=== PATIENT | male | born 1995 | race Caucasian/White ===

== ENCOUNTER 2016-09-11 18:03 | Emergency (ER) | payer BC ==
[2016-09-11] MEDS ORDERED: CEPHALEXIN 250 MG CAP As Ordered ONE (19:09)
[2016-09-11] MEDS ORDERED: ADACEL/BOOSTRIX VACCINE (DIPHTH/PERTUSS/ACELL/TETANUS)0.5ML SYR (90715) As Ordered ONE (19:10)
--- NOTE | 2016-09-11 19:26 | EDDOCDS ---
Physician Documentation [facility] Name: Wagner Fraser Age: 20 yrs Sex: Male : 1995 Arrival Date: 09/11/2016 Time: 18:03 Bed Triage 2 Private MD: Sha Don Disposition: 09/11/16 19:13 Discharged to Home/Self Care. Impression: Puncture wound with foreign body of left upper arm - small gauge needle. - Condition is Stable. - Discharge Instructions: Needle Stick Injury, Elbow Contusion. - Prescriptions for Keflex 250 mg Oral Capsule - take 1 capsule by ORAL route every 8 hours for 10 days; 30 capsule. - Medication Reconciliation, Local Pharmacy Hours form. - Follow up: Sergio Sifuentes MD; When: Call to arrange an appointment; Reason: Recheck today's complaints, Continuance of care. - Problem is new. - Symptoms are unchanged. Historical: - Allergies: no known allergies; - Home Meds: 1. none - PMHx: none; - PSHx: none; - Social history: Smoking status: Patient uses tobacco products, current every day smoker. Patient uses street drugs, marijuana, Patient/guardian denies using alcohol, No barriers to communication noted, The patient speaks fluent Kosovan, Speaks appropriately for age. - Family history: No immediate family members are acutely ill. - : The pt / caregiver states he / she is not on anticoagulants. Home medication list is obtained from the patient. - Exposure Risk Screening:: None identified. Vital Signs: 09/11 18:07 BP 157 / 78; Pulse 92; Resp 17; Temp 96.8(O); Pulse Ox 98% on R/A; Weight 77.11 kg / lr2 170 lbs (R); Height 5 ft. 11 in. (180.34 cm) (R); 18:07 Body Mass Index 23.71 (77.11 kg, 180.34 cm) lr2 MDM: 18:15 Elbow, Complete Ordered. EDMS 19:04 Dressing ordered. mo1 19:04 Tetanus- Diptheria-Acellular Pertussis 0.5 ml IM once; Routine booster 10-64yrs, >64 mo1 with child contact [place] [employer] ordered. 19:04 Cephalexin 500 mg PO once ordered. mo1 Administered Medications: 19:16 Drug: Tetanus- Diptheria-Acellular Pertussis 0.5 ml [diphth,pertussis(acel),tetanus 2.5 nn1 Lf unit-8 mcg-5 Lf/0.5mL IM syringe (0.5 mL)] {Geodetic Technician: [employer]. Exp: 09/17/2018. Lot #: [id number]. } Route: IM; Site: left deltoid; 19:17 Drug: Cephalexin 500 mg [cephalexin 250 mg capsule (2 caps)] Route: PO; nn1 Signatures: Dispatcher [employer] EDBirdie Silva RN RN Grzegorz Ricks PA PA mo1 Ivet MotaRN RN nn1 MTDD
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
--- NOTE | 2016-09-13 20:27 | EDDOCDS ---
Physician Documentation [facility] Name: Wagner Fraser Age: 20 yrs Sex: Male : 1995 Arrival Date: 09/11/2016 Time: 18:03 Bed Triage 2 Private MD: Sha Don Disposition: 09/11/16 19:13 Discharged to Home/Self Care. Impression: Puncture wound with foreign body of left upper arm - small gauge needle. - Condition is Stable. - Discharge Instructions: Needle Stick Injury, Elbow Contusion. - Prescriptions for Keflex 250 mg Oral Capsule - take 1 capsule by ORAL route every 8 hours for 10 days; 30 capsule. - Medication Reconciliation, Local Pharmacy Hours form. - Follow up: Sergio Sifuentes MD; When: Call to arrange an appointment; Reason: Recheck today's complaints, Continuance of care. - Problem is new. - Symptoms are unchanged. Historical: - Allergies: no known allergies; - Home Meds: 1. none - PMHx: none; - PSHx: none; - Social history: Smoking status: Patient uses tobacco products, current every day smoker. Patient uses street drugs, marijuana, Patient/guardian denies using alcohol, No barriers to communication noted, The patient speaks fluent Swazi, Speaks appropriately for age. - Family history: No immediate family members are acutely ill. - : The pt / caregiver states he / she is not on anticoagulants. Home medication list is obtained from the patient. - Exposure Risk Screening:: None identified. Vital Signs: 09/11 18:07 BP 157 / 78; Pulse 92; Resp 17; Temp 96.8(O); Pulse Ox 98% on R/A; Weight 77.11 kg / lr2 170 lbs (R); Height 5 ft. 11 in. (180.34 cm) (R); 19:25 BP 135 / 90; Pulse 89; Resp 18; Temp 98.0; Pulse Ox 98% on R/A; Pain 2/10; nn1 18:07 Body Mass Index 23.71 (77.11 kg, 180.34 cm) lr2 MDM: 18:15 Elbow, Complete Ordered. EDMS 19:04 Dressing ordered. mo1 19:04 Tetanus- Diptheria-Acellular Pertussis 0.5 ml IM once; Routine booster 10-64yrs, >64 mo1 with child contact [place] ordered. 19:04 Cephalexin 500 mg PO once ordered. mo1 19:39 [facility] Payment Agreement was scanned into [employer] and attached to record. [facility] :39 Financial registration complete. [facility] 09/12 11:34 T-Sheet-- Draft Copy was scanned into [employer] and attached to record. 15:41 Consents was scanned into [employer] and attached to record. gb 09/13 08:06 ED course: left elbow film faxed to dr sifuentes for fu mlg. ml Administered Medications: 09/11 19:16 Drug: Tetanus- Diptheria-Acellular Pertussis 0.5 ml [diphth,pertussis(acel),tetanus 2.5 nn1 Lf unit-8 mcg-5 Lf/0.5mL IM syringe (0.5 mL)] {Desk Reporter: [employer]. Exp: 09/17/2018. Lot #: [id number]. } Route: IM; Site: left deltoid; 19:17 Drug: Cephalexin 500 mg [cephalexin 250 mg capsule (2 caps)] Route: PO; nn1 Signatures: [facility] Salomon Littlejohn MD MD ml Barnhardt, Gloria, Reg Reg gb Conner, Teresa, RN RN ttb Grzegorz Powell PA PA mo1 Ivet Mota RN RN nn1 Valentine Noble The chart was reviewed and I authenticate all verbal orders and agree with the evaluation and treatment provided.Attachments: :39 [facility] Payment Agreement [facility] 09/12 11:34 T-Sheet-- Draft Copy gb Chart Complete MTDD
--- NOTE | 2016-09-13 20:27 | EDDOCDS ---
Physician Documentation [facility] Name: Wagner Fraser Age: 20 yrs Sex: Male : 1995 Arrival Date: 09/11/2016 Time: 18:03 Bed Triage 2 Private MD: Sha Don Disposition: 09/11/16 19:13 Discharged to Home/Self Care. Impression: Puncture wound with foreign body of left upper arm - small gauge needle. - Condition is Stable. - Discharge Instructions: Needle Stick Injury, Elbow Contusion. - Prescriptions for Keflex 250 mg Oral Capsule - take 1 capsule by ORAL route every 8 hours for 10 days; 30 capsule. - Medication Reconciliation, Local Pharmacy Hours form. - Follow up: Sergio Sifuentes MD; When: Call to arrange an appointment; Reason: Recheck today's complaints, Continuance of care. - Problem is new. - Symptoms are unchanged. Historical: - Allergies: no known allergies; - Home Meds: 1. none - PMHx: none; - PSHx: none; - Social history: Smoking status: Patient uses tobacco products, current every day smoker. Patient uses street drugs, marijuana, Patient/guardian denies using alcohol, No barriers to communication noted, The patient speaks fluent Palauan, Speaks appropriately for age. - Family history: No immediate family members are acutely ill. - : The pt / caregiver states he / she is not on anticoagulants. Home medication list is obtained from the patient. - Exposure Risk Screening:: None identified. Vital Signs: 09/11 18:07 BP 157 / 78; Pulse 92; Resp 17; Temp 96.8(O); Pulse Ox 98% on R/A; Weight 77.11 kg / lr2 170 lbs (R); Height 5 ft. 11 in. (180.34 cm) (R); 19:25 BP 135 / 90; Pulse 89; Resp 18; Temp 98.0; Pulse Ox 98% on R/A; Pain 2/10; nn1 18:07 Body Mass Index 23.71 (77.11 kg, 180.34 cm) lr2 MDM: 18:15 Elbow, Complete Ordered. EDMS 19:04 Dressing ordered. mo1 19:04 Tetanus- Diptheria-Acellular Pertussis 0.5 ml IM once; Routine booster 10-64yrs, >64 mo1 with child contact [place] [employer] ordered. 19:04 Cephalexin 500 mg PO once ordered. mo1 19:39 [facility] Payment Agreement was scanned into [employer] and attached to record. [facility] :39 Financial registration complete. [facility] 09/12 11:34 T-Sheet-- Draft Copy was scanned into [employer] and attached to record. 15:41 Consents was scanned into [employer] and attached to record. gb 09/13 08:06 ED course: left elbow film faxed to dr sifuentes for fu mlg. ml Administered Medications: 09/11 19:16 Drug: Tetanus- Diptheria-Acellular Pertussis 0.5 ml [diphth,pertussis(acel),tetanus 2.5 nn1 Lf unit-8 mcg-5 Lf/0.5mL IM syringe (0.5 mL)] {Hoop Puncher: [employer]. Exp: 09/17/2018. Lot #: [id number]. } Route: IM; Site: left deltoid; 19:17 Drug: Cephalexin 500 mg [cephalexin 250 mg capsule (2 caps)] Route: PO; nn1 Signatures: Dispatcher [facility] EDMS Salomon Littlejohn MD MD ml Barnhardt, Gloria, Reg Reg gb Conner, Teresa, RN RN ttb Grzegorz Powell PA PA mo1 Ivet Mota RN RN nn1 Valentine Noble The chart was reviewed and I authenticate all verbal orders and agree with the evaluation and treatment provided.Attachments: :39 [facility] Payment Agreement [facility] 09/12 11:34 T-Sheet-- Draft Copy gb Chart Complete MTDD
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
== END 2016-09-11 19:25 | disposition home or self-care (01) ==
LOC: M ED 18:03
DX: S51.032A Puncture wound without foreign body of left elbow, initial encounter (principal); Z72.0 Tobacco use; Z23 Encounter for immunization; W46.0XXA Contact with hypodermic needle, initial encounter; Y92.89 Other specified places as the place of occurrence of the external cause; Y93.89 Activity, other specified; Y99.9 Unspecified external cause status

== ENCOUNTER → 2017-07-07 | Outpatient (CLI) | payer BC | LOC: M OUTALCOH 08:04 | PROVIDERS: ATTEND Psychiatry & Neurology Psychiatry | DX: F11.20 Opioid dependence, uncomplicated (principal) ==

== ENCOUNTER 2019-08-12 19:15 | Emergency (ER) | payer BC ==
[~2019-08-12] VITALS: Ht 175.3 cm; Wt 64.3 kg
[2019-08-12 21:01] LABS: AMPHETAMINES LEVEL URINE POSITIVE (NEGATIVE); BARBITURATES URINE NEGATIVE (NEGATIVE); BENZODIAZEPINES URINE NEGATIVE (NEGATIVE); CANNABINOIDS URINE POSITIVE (NEGATIVE); COCAINE METABOLITE URINE NEGATIVE (NEGATIVE); METHADONE URINE NEGATIVE (NEGATIVE); OPIATES URINE NEGATIVE (NEGATIVE); PHENCYCLIDINE URINE NEGATIVE (NEGATIVE)
[2019-08-12 21:04] LABS: HEMATOCRIT 45.3 % (42.0-52.0); HEMOGLOBIN 14.4 g/dl (13.5-17.5); MEAN CORPUSCULAR HEMOGLOBIN 28.1 pg (27.0-33.0); MEAN CORPUSCULAR HGB CONC 31.8 g/dl (32.0-36.5); MEAN CORPUSCULAR VOLUME 88.5 fl (80.0-96.0); PLATELET COUNT, AUTOMATED 176 10^3/uL (150-450); RED BLOOD COUNT 5.12 10^6/uL (4.30-6.10); WHITE BLOOD COUNT 7.5 10^3/uL (4.0-10.0)
[2019-08-12 21:35] LABS: ACETAMINOPHEN LEVEL < 2.0 UG/ML (10.0-30.0); ALT/SGPT 19 U/L (12-78); BILIRUBIN,DIRECT 0.5 MG/DL (0.0-0.2); BILIRUBIN,TOTAL 1.8 MG/DL (0.2-1.0); BLOOD UREA NITROGEN 32 MG/DL (7-18); CALCIUM LEVEL 9.4 MG/DL (8.5-10.1); CARBON DIOXIDE LEVEL 25 MEQ/L (21-32); CHLORIDE LEVEL 97 MEQ/L (98-107); CPK CREATINE PHOSPHOKINASE 291 U/L (39-308); CREATININE FOR GFR 1.07 MG/DL (0.70-1.30); ETHYL ALCOHOL (ETHANOL) < 0.003 % (0.000-0.010); GLOMERULAR FILTRATION RATE > 60.0 (>60); GLUCOSE, FASTING 107 MG/DL (70-100); SALICYLATE LEVEL < 1.7 MG/DL (5.0-30.0); SODIUM LEVEL 132 MEQ/L (136-145); TOTAL PROTEIN 8.4 GM/DL (6.4-8.2)
[2019-08-13] MEDS ORDERED: NICOTINE 21MG/24HR 1 EA TRANSDERMAL TD ONE (09:30)
--- NOTE | 2019-08-13 15:24 | MHCRPDOC ---
[facility] Consultation Consultation DATE OF CONSULTATION: 08/13/19 CONSULTATION REQUESTED BY: ED REASON FOR CONSULTATION: psychosis secondary methamphetamine abuse RELEVANT HISTORY: Pt is a 23y/o CM with no previous psych history who presented to the ED with psychosis and paranoia that "my neighbors were spying on me" for 2 days after he used methamphetamine. States he woke up today no longer feeling confused, psychotic, or paranoid but like his normal self. Pt mother was in the room who stated that pt was doing well today and appeared his normal self. Encouraged to stay away from methamphetamines (only uses occasionally), suboxone ("I get that from a friend), and all substances which he agrees he should do and will do. 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 Mother states she lives in [facility] and was able to inform her that there are several substances abuse treatment centers of the area and told her of one in [place], [place], [facility], that pt can go to that has inpatient, PHP, IOP, and outpatient s ubstance abuse treatment as I have worked there in the past, 2013. Pt denies depression, anxiety, insomnia, SI/HI, hallucinations, delusions, paranoia. He does not appear psychotic and his thoughts are linear and logical. He feels safe to go to his sister's home in [place] with his mother. PAST PSYCHIATRIC HISTORY: denies PAST MEDICAL HISTORY: denies FAMILY HISTORY: noncontributory PERSONAL AND SOCIAL HISTORY: The patient was born and raised in [place]. Resides in: [place] with his dad but will go to his sister's home today with his mother who is visiting from [place] and mother plans to take pt to [place] for substance abuse treatment Marital Status: S Single Children: none Employment: unemployed SUBSTANCE ABUSE HISTORY: occasionally methamphetamine abuse suboxone abuse that he buys for a "friend" LEGAL HISTORY: deneis MENTAL STATUS EXAMINATION: Patient is a 23-year old male, who is of is calm and cooperative Speech is reg rate/rhythm/volume Language skills are good Thought processes including: linear, logical Thought content: denies SI/HI, hallucinations, delusions, paranoia Abstract reasoning, and computation: intact Description of associations: appropriate Description of abnormal or psychotic thoughts: denies Judgment: good. Insight: good. Orientation to x3 Recent and remote memory: good Attention span and concentration: good Language: appropriate Fund of knowledge: average Mood: "much better" Affect: euthymic, full, appropriate DIAGNOSIS: 1. 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 methamphetamine/suboxone use d/o PLAN: 1. d/c pt home with his mother 2. follow-up in substance abuse treatment. If would like to call [facility] now called [facility] regarding substance abuse treatment the phone number is [phone]. Vital Signs Vital Signs Date Time Temp Pulse Resp B/P (MAP) Pulse Ox O2 Delivery O2 Flow Rate FiO2 08/13/19 09:28 97.7 88 18 127/80 (96) 99 Room Air Laboratory Data 24H Labs Laboratory Tests 2 08/12/19 19:53: Urine Opiates Screen NEGATIVE, Urine Methadone Screen NEGATIVE, Urine Barbiturates Screen NEGATIVE, Urine Phencyclidine Screen NEGATIVE, Urine Amphetamines Screen POSITIVEH, Urine Benzodiazepines Screen NEGATIVE, Urine Cocaine Metabolite Screen NEGATIVE, Urine Cannabinoids Screen POSITIVEH 08/12/19 20:54: Nucleated Red Blood Cells % (auto) 0.0, Anion Gap 10, Glomerular Filtration Rate > 60.0, Calcium Level 9.4, Total Bilirubin 1.8H, Direct Bilirubin 0.5H, Aspartate Amino Transf (AST/SGOT) 17, Alanine Aminotransferase (ALT/SGPT) 19, Alkaline Phosphatase 80, Total Creatine Kinase 291, Total Protein 8.4H, Albumin 5.0, Albumin/Globulin Ratio 1.47, Thyroid Stimulating Hormone (TSH) 1.010, Salicylates Level < 1.7L, Acetaminophen Level < 2.0L, Ethyl Alcohol Level < 0.003 Home Medications Current Medications Current Medications Medications (Trade) Dose Ordered Sig/Isaiah Route PRN Reason Start Time Stop Time Status Last Admin Dose Admin Home Med (Med Rec Complete!) ASDIRECTED XX 08/13/19 09:30 08/13/19 09:29 DC No Active Prescriptions or Reported Meds Allergies Coded Allergies: Sulfa (Sulfonamide Antibiotics) (Verified Allergy, Unknown, unknown, 08/12/19) ROSEANN HOWARD DO Aug 13, 2019 15:24
[2019-08-13 15:27] VITALS: BP 127/70
--- NOTE | 2019-08-13 20:37 | ECGEPIP ---
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 : 1995 Requested By: MARCK WHEELER Order Number: [id number] Reading MD: Kimberli Kirk Measurements Intervals [place] Rate: 82 P: 74 NM: 168 QRS: 60 QRSD: 91 T: 62 QT: 287 QTc: 337 Interpretive Statements SINUS RHYTHM WITH SINUS ARRHYTHMIA POSSIBLE RIGHT ATRIAL ENLARGEMENT NONSPECIFIC T-WAVE ABNORMALITY NO PRIOR Electronically Signed on 08-13-2019 20:37:13 EST by Kimberli Kirk
== END 2019-08-13 15:31 | disposition home or self-care (01) ==
LOC: M ED 19:15
DX: F29 Unspecified psychosis not due to a substance or known physiological condition (principal); F15.10 Other stimulant abuse, uncomplicated; Z88.1 Allergy status to other antibiotic agents; Z88.2 Allergy status to sulfonamides
CPT/HCPCS: 36415; 80048; 80076; 80307; 82550; 84443; 85027; 93005; 99284; G0480